=== PATIENT | female | born 1980 | race African-American/Black ===

== ENCOUNTER 2018-03-12 09:00 | Outpatient (RCR) | payer OTHER, SELFPAY ==
--- NOTE | 2018-02-13 08:35 | AT_ITS ---
02/13/18 ATx1- See flow sheet. Progressions made today for increase in repetitions to build muscle and strength. Skilled cueing throughout for proper movement pattern and intrinsic activation. See flow sheet for specifics and for progressions. Total Time:60 minutes Direct Time: 15 minutes with pt requiring skilled cueing for proper initiation of exercises and able to perform with minimal supervision.
--- NOTE | 2018-02-18 11:42 | PTTR_ITS ---
DATE: 02/18/18 SUBJECTIVE: Juana states that she was quite sore after her last aquatic therapy session, although she does state that she feels it is helping. OBJECTIVE: * [X] Aquatic Therapy - (20132 x1): Patient completed a therapeutic exercise program in an aquatic setting for core strengthening and global conditioning with decompression for pain relief, as per flow sheet. Patient required skilled cuing to avoid compensatory movement patterns and for core activation. Patient ended with deep water biking, LE abd/add, LE flex/ext, and traction. Direct treatment time: 20 minutes Total treatment time: 45 minutes
--- NOTE | 2018-02-20 10:23 | AT_ITS ---
02/20/18 SUBJECTIVE: Juana states that she is very sore today and that she was really looking forward to getting into the pool for aquatic therapy. ATx1- Pt completes a therapeutic exercise program in an aquatic setting for general conditioning with decompression for pain relief as per flow sheet. Pt tolerated a progression in her program today and modifications made for reps and times are noted on flow sheet. Pt ends with deep water biking DKTC and traction. Direct Time: 15 minutes Total Time: 45 minutes
--- NOTE | 2018-02-25 10:31 | NT_ITS ---
02/25/18 Cancelled today's aquatic therapy session. Chasity Garcia, SPIN TABLE OPERATOR
--- NOTE | 2018-02-27 10:14 | AT_ITS ---
02/27/18 SUBJECTIVE- Juana stating that she saw an orthopedic doctor and wishes that she can continue with PT services and suggests dry needling. Juana states that she is having worsening symptoms throughout the (L) thoracic and lumbar back region. She continues to work but overall her functional activities have been improving. Pain essentially hasn't been greatly improved over the past few weeks. ATx2 See flow sheet, skilled cueing throughout for proper exercise performance and progression of exercises with consistent cueing throughout for proper movement patterns and body mechanics and intrinsic utilization. Total time 60 minutes with minimal supervision required for warm up and fiona down activities otherwise direct supervision for proper exercise performance.
--- NOTE | 2018-03-12 10:49 | PTTR_ITS ---
DATE: 03/12/18 SUBJECTIVE: Patient reporting resolution of neck and upper back pain. Mainly c/ o severe discomfort post driving, or sitting beyond 30 minutes at a time. She has attempted utilizing towel rolls and pillow to improve her comfort, without much relief when driving. She is still reliant on pain medication (Vicoprofen) to sleep at night. She has returned to doing all household and daily function' s without difficult, but avoid any object manipulation above 10#, due to her fear of pain exacerbation and under her MD recommendations. Pain number: 10/10 post sitting and driving. 4/10 on average with daily activities. Does occasionally have 0/10 if she has been up moving around doing light activities. Pain location: Central low back. No peripheral symptoms. HEP compliant? Yes. Completing core strengthening every other day, stretches prn as previously issued. OBJECTIVE: ROM: C-spine: WNL, all planes B UE's: WNL, all planes Lumbar spine: flexion 45* drawing through HS's, Extension WNL with low grade discomfort central low back, SB and rotation WNL with contralateral soft tissue draw. B LE's: WNL, all planes Gait: WNL, toe and heel walk WNL Neuro: LE screen WNL Palpation: Tension appreciated throughout lumbar and thoracic paraspinals, pain induced primarily through the R lumbar fascia along L4-L5. Manual therapy: ([id number]). In addition to the above assessment: B Figure 4, supine twist and U KTC stretching, with end range grade 4 oscillations to tolerance. Patient experiencing soft tissue stretch vs. pain. B log roll mobilizations, tolerating grade 4 on R side, grade 4-- on L. CPA and UPA's throughout all lumbar segments, more symptomatic at R L4/5. Completed grade 4-4+ oscillations as tolerated. IASTM down regulation B thoracic and lumbar paraspinals STM through paraspinals and lumbar fascia, with focus of deep tissue work at R lumbar multifidus and fascia where she was most irritable. Child's pose stretch to end, with side reach. Rock tape applied along length of paraspinals and lumbar fascia. Provided patient with yoga stretch handout for progression of self stretching, and instructed in posterior pelvic tilt via TrA contraction for attempt of pain management and fascia mobilization with sitting activities. Direct treatment time: 60 minutes Total treatment time: 60 minutes Assessment: Juana has made great improvements after weeks of aquatic intervention, now demonstrating return of full and pain free neck and UE movement, and return to all household and a majority of her daily activities with imported comfort. She has returned to work, but with lifting limitations and sever pain post driving or sitting, both requirements of her job. She presents with clinical signs of symptoms of residual soft tissue dysfunctional and secondary articular limitation through the lumbar spine, as a direct result of her work related injury, leaving her still with remarkable pain with sitting activities, reliance on pain medication to sleep, inability to manipulate objects heavier than 10#, and has no returned to complete premorbid level of pain free function. She continues to require skilled PT intervention to attend to her impairments of: soft tissue dysfunction and thoracolumbar articular limitations, thus diminished her current functional level limitations as described above. Plan: Proceed 2x/week for manual therapy with focus of thoracolumbar articular and soft tissue mobilization, intrinsic core strengthening for return to full lifting function and inhibition of her lumbar fascial pain, and to improve sitting tolerance. Anticipate patient will require at least another 8 weeks of therapy.
== END 2018-03-14 23:59 | disposition home or self-care (01) ==
LOC: PT 09:00
PROVIDERS: PCP Physician Assistant Medical; Referring Provider Physician Assistant Medical; Visit Provider Physician Assistant Medical
DX: S39.012D Strain of muscle, fascia and tendon of lower back, subsequent encounter (principal); S16.1XXD Strain of muscle, fascia and tendon at neck level, subsequent encounter; M79.89 Other specified soft tissue disorders
CPT/HCPCS: 97113; 97140

== ENCOUNTER 2019-08-25 08:01 | Emergency (ER) | payer OTHER, SELFPAY ==
[2019-08-25 08:05] VITALS: BP 178/110; PULSE 88; RESP 16; TEMP 36.4; O2SAT 99
--- NOTE | 2019-08-25 08:11 | W.ED.GENAD ---
Discharge Plan Disposition Patient Disposition: HOME Condition: Good Discharge Details Chief Complaint: Nk/Back Pain Clinical Impression: Fall, Muscle spasm Primary Care Provider: Jessi Torres ED Provider: lAbertina Saleem Home Meds and New Rx's Prescriptions: New cyclobenzaprine 10 mg tablet 10 mg PO TID PRN (Reason: muscle spasm) Qty: 5 RF: 0 No Action Lantus U-100 Insulin 100 unit/mL Solution 15 unit SUBCUT DAILY AM RF: 0 lisinopril 2.5 mg Tablet 2.5 mg PO DAILY RF: 0 Humalog U-100 Insulin 100 unit/mL Cartridge 30 unit SUBCUT BID RF: 0 Discharge Instructions Instructions: Muscle Spasm (ED) Additional Instructions: Drink plenty of fluids. Motrin or Tylenol for soreness if needed. Rest activities as tolerated. Use muscle relaxant at night if needed. This will cause drowsiness. Do not drive, consume alcohol or work while taking care of this medication. If not improving in the next 5 to 7 days have reevaluation with your primary care provider. Return for any alarming symptoms, worsening or concerns sooner if needed Stand Alone Forms: Work Release Discharge Data Discharge Date/Time-TO BE ENTERED AT DEPARTURE: 08/25/19 09:54 Medical Decision Making Is a very pleasant 38-year-old woman presenting to the emergency room today for complaints of lower back pain. Patient reports she was walking up 3 steps into work this morning, outdoor stairs were icy and she slipped off the top step falling backwards landing on her lower back. Patient denies striking her head. Denies loss of consciousness, headache, dizziness, nausea, vomiting. Patient denies any other sites of pain or concerns at this time. Patient encouraged to come by her boss. Vital signs reviewed patient notably hypertensive this was discussed with the patient. No sign of hypertensive emergency at this time. X-rays revealed no acute fracture of the lumbar spine. Degenerative changes noted of the SI joint. These results were discussed with the patient. At this time patient has no sign of neurosurgical emergency. Patient has no other evidence of trauma. Patient feels stable for discharge home. Did discuss medication management at home. Patient's preference is a few tablets of muscle relaxant if needed for the first 2 days. We did discuss use of muscle relaxant safely. Patient reports understanding. The patient was stable and requested discharge. Prior to discharge, my usual and customary return precautions were reviewed with the patient - this included follow-up instructions and reasons to return to the Emergency Department if conditions worsens, does not improve as expected, or other new concerns arise. HPI General Date/Time Provider Initiated Documentation: 08/25/19 08:02. HPI Narrative: Is a 38-year-old very pleasant woman presenting to the emergency room after a slip and fall on snowy stairs at work this morning at approximately 718. Patient reports she is complaining of primarily lower back pain. Reports striking her lower back. Patient denies radicular symptoms into the lower extremities or upper extremities. Patient denies numbness, tingling or weakness. Patient reports she felt the wind was knocked out of her but feels her breathing is normal at this time. Denies chest pain, difficulty breathing of shortness of breath or wheezing. Denies any rib tenderness. Denies abdominal pain. Denies abrasions or obvious open wounds. No other concerns or complaints at this time. Related Data Home Medications Medication Instructions Recorded Confirmed cyclobenzaprine 10 mg PO TID PRN #5 tab 08/25/19 insulin glargine [Lantus U-100 15 unit SUBCUT DAILY AM 08/25/19 08/25/19 Insulin] insulin lispro [Humalog U-100 30 unit SUBCUT BID 08/25/19 08/25/19 Insulin] lisinopril 2.5 mg PO DAILY 08/25/19 08/25/19 Previous Rx's Medication Instructions Recorded cyclobenzaprine 10 mg PO TID PRN #5 tab 08/25/19 Allergies Allergy/AdvReac Type Severity Reaction Status Date / Time aspirin Allergy Itching Unverified 08/25/19 08:13 avocado Allergy Swelling/Ed Unverified 08/25/19 08:13 ronnie Review of Systems All systems reviewed & are unremarkable except as noted in HPI and below Constitutional Constitutional: Denies fever(s), Denies headache(s) and Denies malaise Eyes Eyes: Denies blurry vision, Denies change in vision and Denies photophobia ENT Ears, Nose, Mouth, and Throat: Denies vertigo, Denies dizziness, Denies headache(s) and Reports neck pain Cardiovascular Cardiovascular: Denies chest pain, Denies diaphoresis, Denies syncope and Denies dyspnea Respiratory Respiratory: Denies cough and Denies dyspnea Gastrointestinal Gastrointestinal: Denies abdominal pain, Denies diarrhea, Reports nausea (Initially since resolved) and Denies vomiting Genitourinary Genitourinary: Denies hematuria and Denies dysuria Musculoskeletal Musculoskeletal: Reports back pain, Denies deformity, Reports limited range of motion (Left shoulder, known.), Reports neck pain, Denies numbness, Denies radiating pain into limb and Denies tingling Neurologic Neurologic: Denies vertigo, Denies dizziness, Denies syncope, Denies headache(s), Denies numbness, Denies tingling and Denies paresthesias [facility] Medical History (Updated 08/25/19 @ 09:39 by KUSUM Henry) Diabetes (Chronic) Hypertension (Chronic) Social History Smoking/Tobacco Use Status: Current-Occasional Alcohol Intake: current Alcohol Intake frequency: a few times a week Drug use: Rarely Substance use type: marijuana Exam Narrative Exam Narrative: CONST: Healthy appearing patient, in no acute distress. Well hydrated. Alert and oriented. HENMT: Head nomocephalic, normal to inspection. Atraumatic. Hearing grossly normal. EYES: General normal appearance. Alignment normal. Eyelids normal. Conjunctiva normal. NECK: Normal visual inspection. FROM without pain. Trachea midline. Mild cervical tenderness with palpation, patient reports this is her baseline. CHEST: Normal insepection of the chest. No palpable rib tenderness RESP: Normal respiratory effort. Speaking full sentences. No cough. No audible wheezing. No retractions. MUSCULOSKELETAL: Normal Gait. Mild left AC joint tenderness at the shoulder with pain with overhead reaching specifically with abduction. No significant pain with abduction. No obvious deformity. Bilateral upper extremities with zookeeper strength intact. Distal neurovascularly intact. No palpable pain in the lower extremities. Normal lower extremity exam. Back minimal thoracic pain with palpation no step-offs. Lumbar pain noted with palpation, left SI joint tenderness noted. No right SI joint tenderness. No pain in the sciatic notches. SKIN: Normal. Dry. No rashes. NEURO: Alert and awake. Speech clear. PSYCH: Normal affect. Cooperative.
[2019-08-25] MEDS: Acetaminophen 500 MG TAB 1000 MG PO (08:19)
--- NOTE | 2019-08-25 08:36 | DI.RAD_ITS ---
EXAM: XR LUMBAR SPINE COMPLETE INDICATION: pain, fall. COMPARISON: No exams were available for comparison TECHNIQUE: 2D digital imaging was performed. FINDINGS: The vertebral bodies and disc spaces are well maintained. No spondylolysis, spondylolisthesis or sco liosis is seen. Surgical clips are noted in the pelvis and right upper quadrant. IMPRESSION: Negative lumbar spine.
--- NOTE | 2019-08-25 08:41 | DI.RAD_ITS ---
EXAM: XR SACROILIAC JOINTS INDICATION: pain, left SI joint. COMPARISON: No exams were available for comparison TECHNIQUE: 2D digital imaging was performed. FINDINGS: There is mild spurring and mild sclerosis at the mid to inferior right SI joint. Minimal sclerosis a nd spurring is noted at the left SI joint. No bony erosions are seen. Hip joint spaces are well altagracia ntained. IMPRESSION: Degenerative changes of the SI joints, right greater than left.
[2019-08-25 09:53] VITALS: BP 172/100; PULSE 76; TEMP 36.6; O2SAT 100
== END 2019-08-25 09:54 | disposition home or self-care (01) ==
PROVIDERS: Emergency Provider Physician Assistant; PCP Family Medicine
DX: M54.5 Low back pain (principal); M62.830 Muscle spasm of back; W10.8XXA Fall (on) (from) other stairs and steps, initial encounter
CPT/HCPCS: 81025; 99284; 72110; 72202